=== PATIENT | female | born 1990 | race Two or more races ===

== ENCOUNTER 2025-06-16 09:53 | Emergency (ER) | payer OTHER ==
[~2025-06-16] VITALS: Ht 162.6 cm; Wt 86.2 kg
[2025-06-16] MEDS ORDERED: COZAAR25 MG PO (10:32)
[2025-06-16] MEDS ORDERED: KETOROLAC TROMETHAMINE 60 MG VIAL IM ONE (12:15)
== END 2025-06-16 14:14 ==
LOC: ER 09:53
DX: R51.9 Headache, unspecified (principal); I10 Essential (primary) hypertension